=== PATIENT | male | born 1995 | race Caucasian/White ===

== ENCOUNTER 2022-04-19 17:50 | Emergency (ER) | payer OTHER, SELFPAY ==
--- NOTE | 2022-04-19 17:54 | DI.RAD.S_ITS ---
PROCEDURE: XR ANKLE LT MIN 3V INDICATIONS: fall TECHNIQUE: 3 views of the ankle were acquired. COMPARISON: None. FINDINGS: Bones: No fractures or dislocations. Ankle mortise is normally aligned. There is a sclerotic lesion in the distal fibular shaft. Calcaneal spurring. Soft tissues: Small tibiotalar joint effusion. Achilles tendon appears normal. Soft tissue swelling over the lateral malleolus. IMPRESSION: 1. No acute osseous abnormality. 2. Question small tibiotalar joint effusion. There is soft tissue swelling over the lateral malleolus. If clinical symptoms persist or clinical suspicion for pathology is high, a repeat examination in 7-10 days, or advanced imaging such as CT or MRI is suggested for further evaluation. 3. A sclerotic lesion in the distal fibula. 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 It is most likely an incidental finding. If there is continued pain, nonurgent MRI with and without contrast can be obtained. Dictated by: Artur Murrieta M.D. on 04/19/2022 at 18:21 Approved by: Artur Murrieta M.D. on 04/19/2022 at 18:24
[2022-04-19 18:25] VITALS: BP 135/70; PULSE 76; RESP 16; TEMP 37; O2SAT 99; BMI 29.1
--- NOTE | 2022-04-19 20:24 | ED.LOWEXIN ---
HPI - Extremity Injury (Lower) General Chief Complaint: Extremity Injury, Lower Stated Complaint: inflamed lt ank, fall at work Time Seen by Provider: 04/19/22 20:17 Source: patient Mode of arrival: Family Vehicle History of Present Illness HPI Narrative: 26-year-old male nonsmoker with noncontributory medical history presents with his significant other and a chief complaint of a left ankle injury suffered while at work earlier today. 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 He now has pain, swelling and difficulty with ambulation. He denies any hip or knee pain. His pain is worse when he walks and improves with rest. He denies any numbness, tingling or weakness Review of Systems Review of Systems Narrative: GENERAL: Denies chills, fatigue, malaise, fever, sweats. HEENT: Denies sinus pain, ear pain, sore throat, difficulty swallowing, dizziness. RESPIRATORY: Denies dyspnea, cough, wheezing, hemoptysis, sputum. CARDIOVASCULAR: Denies chest pain, palpitations, orthopnea, edema, GASTROINTESTINAL: Denies nausea, vomiting, abdominal pain, diarrhea, constipation, melena. : Denies dysuria, frequency, incontinence, hematuria, urinary retention. MUSCULOSKELETAL: See HPI SKIN: Denies rash, skin lesions, or other NEUROLOGIC: Denies weakness, headache, numbness, change in speech, confusion, seizures, incoordination. PSYCHIATRIC: No concerning psychosocial issues. 12 point review of systems is negative except for those stated above Patient History Social History Smoking Status: Never smoker Smoking Status: Never smoker alcohol intake frequency: a few times a month Substance Use Type: does not use Exam Narrative Exam Narrative: GENERAL: [26] year old patient appears stated age. Well-developed patient, in mild distress. Ambulates with antalgic gait, brings his own crutches HEAD: Atraumatic. Normocephalic. EYES: Pupils equal round and reactive. Extraocular motions intact. No scleral icterus. No injection or drainage. ENT: Nose without bleeding, purulent drainage. Throat without erythema, tonsillar hypertrophy or exudate. Airway patent. NECK: Trachea midline. Non tender CARDIOVASCULAR: Regular rate and rhythm without murmurs, gallops, or rubs. RESPIRATORY: Clear to auscultation. Breath sounds equal bilaterally. No wheezes, rales, or rhonchi. GASTROINTESTINAL: Abdomen soft, non-tender, nondistended. EXTREMITIES: Pain and swelling of left ankle, most notable over lateral malleolus in the distribution of the anterior talofibular ligament. No pain with squeeze test, no pain at knee or proximal fibula. No pain over talus, no ligamentous instability, no pain of calcaneus or 5th metatarsal. This is closed, isolated and neurovascularly intact BACK: Nontender without deformity or crepitance. No flank tenderness. NEURO: AOx3. SKIN: No rash or erythema of visible areas Initial Vital Signs Initial Vital Signs: Vital Signs Temperature 98.6 F 04/19/22 18:25 Pulse Rate 76 04/19/22 18:25 Respiratory Rate 16 04/19/22 18:25 Blood Pressure 135/70 04/19/22 18:25 Pulse Oximetry 99 04/19/22 18:25 Oxygen Delivery Method 04/19/22 18:25 Procedures Orthopedic Splinting/Casting Injury #1: Side: left Lower Extremity Injury Location: ankle Lower Extremity Immobilizer: boot orthosis Other Orthopedic Equipment: crutches Course Orders Ordered: ED Orders 04/19/22 17:54 XR ankle LT min 3V Stat Vital Signs Vital signs: Vital Signs - 8 hr 04/19/22 21:04 Pulse Rate 66 Respiratory Rate 12 Blood Pressure 136/72 Pulse Oximetry 98 Oxygen Delivery Method Room Air MDM - Extremity Injury (Lower) MDM Narrative Medical decision making narrative: [26-year-old male with left ankle pain after inversion injury at work] Multiple etiologies for patient's symptoms considered including, but not limited to: [Left ankle fracture, dislocation, soft tissue injury, ankle sprain versus other] Prior Charts reviewed: None available Imaging reviewed: No fracture or dislocation Previously healthy male with inversion injury and pain of left ankle, no evidence of fracture or dislocation on imaging. This is closed, isolated and neurovascularly intact. Exam reassuring and would suggest against any ligamentous instability or high ankle sprain. Patient paced in boot orthosis, has his own crutches and encouraged to follow closely Findings and discharge diagnosis discussed with patient/family followed by verbalization of understanding Return precautions discussed with patient/family whom verbalize understanding of diagnosis and plan Discharge Plan Departure Patient Disposition: Home Clinical Impression: Ankle sprain and strain Activity Restrictions/Additional Instructions: *You have been diagnosed with [left ankle sprain, as we discussed your history and physical exam are reassuring and imaging demonstrates no evidence of fracture or dislocation *What to do: *Please continue to take your regular medications as directed. [ ] New medication prescriptions sent to your pharmacy: [ ] [ ] New medication written as a paper prescription [x] Tylenol and occasional Motrin for pain *Please follow up with Dr. Richardson ] of [facility] in 2-3 days, call for an appointment. Let them know you were seen in the Emergency Department and that we ask that you be seen in follow up. We will electronically transmit a record of today's note if your PCP is in our system *Return to Emergency Department if you should have any new, worsening or concerning symptoms, such as [worsening pain, significant swelling, cold extremities, numbness, tingling, weakness or other bothersome symptoms You may weight bear as tolerated while wearing the boot with use of crutches. Typically your average sprain will improve significantly over the next 5-7 days, however if you have ongoing or worsening symptoms it would be reasonable to follow-up for repeat and perhaps the addition of advanced imaging. Referrals: Provider,Javed ROSENBERG [Primary Care Provider] - Stand Alone Forms: Patient Portal/API, Work Release Note
[2022-04-19 21:04] VITALS: BP 136/72; PULSE 66; RESP 12; O2SAT 98
== END 2022-04-19 21:04 | disposition home or self-care (01) ==
PROVIDERS: Emergency Provider Emergency Medicine
DX: S93.402A Sprain of unspecified ligament of left ankle, initial encounter (principal); S96.912A Strain of unspecified muscle and tendon at ankle and foot level, left foot, initial encounter; X50.1XXA Overexertion from prolonged static or awkward postures, initial encounter
CPT/HCPCS: 73610; 99283